=== PATIENT | male | born 1950 | race African-American/Black ===

== ENCOUNTER 2019-08-01 10:35 | Inpatient (IN) | payer MEDICARE, OTHER ==
[~2019-08-01] VITALS: Ht 177.8 cm; Wt 60.5 kg
[2019-08-01] MEDS ORDERED: SODIUM CHLORIDE 0.9% 1,000 ML IV ONE (11:25)
[2019-08-01 11:38] LABS: BASOPHILS % 0.6 % (0.0-2.0); EOSINOPHILS % 0.2 % (0.0-5.0); HEMATOCRIT. 40.7 % (42.0-52.0); HEMOGLOBIN. 13.9 g/dL (14.0-18.0); MEAN CORPUSCULAR HEMOGLOBIN 33.2 pg (28.0-32.0); MEAN CORPUSCULAR VOLUME 97.3 fL (80.0-94.0); MEAN PLATELET VOLUME 7.7 fl (7.4-10.4); MONOCYTES % 7.3 % (2.0-8.0); NEUTROPHILS % 78.9 % (40.0-76.0); PLATELET 199 x1000/uL (130-400); RED BLOOD CELL COUNT 4.18 mill/uL (4.7-6.1); RED CELL DISTRIBUTION WIDTH 13.2 % (11.6-14.6)
[2019-08-01 11:41] LABS: INR 1.1; PROTHROMBIN TIME 10.9 sec (9.6-11.0)
[2019-08-01 11:44] LABS: CHLORIDE 105 mEq/L (98-107)
[2019-08-01 11:47] LABS: ETHANOL BLOOD < 10 mg/dL
[2019-08-01 11:56] LABS: CREATINE KINASE 282 IU/L (39-308)
[2019-08-01 12:40] LABS: CLARITY URINE CLEAR (CLEAR); COLOR URINE YELLOW (YELLOW); KETONES URINE TRACE (NEGATIVE); LEUKOCYTE ESTERASE URINE NEGATIVE (NEGATIVE); NITRITE URINE NEGATIVE (NEGATIVE); OCCULT BLOOD URINE NEGATIVE (NEGATIVE); PH URINE 6.5 (4.5-8.0); PROTEIN URINE 2+ (NEGATIVE); SPECIFIC GRAVITY URINE 1.029 (1.005-1.030)
[2019-08-01 12:55] LABS: METHADONE URINE SCREEN NEGATIVE (NEGATIVE); OPIATES URINE SCREEN NEGATIVE (NEGATIVE)
[2019-08-01 12:56] LABS: *AMPHETAMINES SCREEN URINE NEGATIVE (NEGATIVE); *BARBITURATES SCREEN URINE NEGATIVE (NEGATIVE); *BENZODIAZEPINES SCREEN URINE NEGATIVE (NEGATIVE); *COCAINE SCREEN URINE NEGATIVE (NEGATIVE); CANNABINOID URINE SCREEN PRESUMTIVE POSITIVE (NEGATIVE); PHENCYCLIDINE URINE SCREEN NEGATIVE (NEGATIVE)
[2019-08-01] MEDS ORDERED: IPRATROPIUM/ALBUTEROL 0.5-3(2.5)MG/3ML NEB HHN PRN (14:15)
[2019-08-01] MEDS ORDERED: ONDANSETRON HCL 4MG/2ML INJ IV PRN (14:15)
[2019-08-01] MEDS ORDERED: LORAZEPAM 0.5MG TABLET PO PRN (14:15)
[2019-08-01] MEDS ORDERED: ACETAMINOPHEN 325MG TABLET PO PRN (14:15)
[2019-08-01] MEDS ORDERED: NITROGLYCERIN 0.4MG TABLET SL SL PRN (14:15)
[2019-08-01] MEDS ORDERED: GUAIFENESIN 200MG/10ML SUGAR FREE UDC PO PRN (14:15)
[2019-08-01] MEDS ORDERED: MAGNESIUM/ALUMINUM HYDROXIDE/SIMETHICONE 30ML UDC PO PRN (14:15)
[2019-08-01] MEDS ORDERED: DOCUSATE SODIUM 100MG CAPSULE PO PRN (14:15)
[2019-08-01] MEDS ORDERED: CLONIDINE 0.1MG TABLET PO PRN (14:15)
[2019-08-01] MEDS ORDERED: KETOROLAC 15MG/ML VIAL IV PRN (16:30)
[2019-08-01] MEDS: HALOPERIDOL LACTATE 5MG/ML VIAL IM PRN (17:27)
[2019-08-01 18:56] LABS: T4 FREE 1.01 ng/dL (0.76-1.46)
[2019-08-01 19:14] LABS: FOLIC ACID (FOLATE) SERUM >20 ng/mL ng/mL (>5.38)
[2019-08-01 19:25] LABS: VITAMIN B12 SERUM 848 pg/mL (211-911)
[2019-08-01] MEDS ORDERED: ZOLPIDEM TARTRATE 5MG TABLET PO PRN (21:00)
[2019-08-01 22:00] VITALS: BP 171/76
[2019-08-01] MEDS ORDERED: DEXTROSE 50% WATER 50ML SYRINGE IV PRN (22:30)
[2019-08-01] MEDS: BLOOD SUGAR DIAGNOSTIC STRIP TEST SCH (23:54)
[2019-08-02] MEDS ORDERED: CEFTRIAXONE 1 G PREMIX 50 ML IV NR
[2019-08-02 00:49] LABS: CREATINE KINASE 370 IU/L (39-308)
[2019-08-02 00:51] LABS: CREATINE KINASE MB FRACTION 3.5 ng/mL (0.5-3.6)
[2019-08-02 04:00] VITALS: BP_SYST 89
[2019-08-02] MEDS: HALOPERIDOL LACTATE 5MG/ML VIAL IM PRN (04:29)
[2019-08-02 06:37] LABS: CREATINE KINASE 404 IU/L (39-308); CREATINE KINASE MB FRACTION 3.7 ng/mL (0.5-3.6)
[2019-08-02] MEDS: BLOOD SUGAR DIAGNOSTIC STRIP TEST SCH ×4 (07:40→20:38)
[2019-08-02 08:00] VITALS: BP 164/101
[2019-08-02] MEDS: INSULIN LISPRO 100 UNITS/ML SUBCUT SCH ×5 (08:10→20:43)
[2019-08-02] MEDS: LISINOPRIL 20MG TABLET PO SCH ×2 (09:34→20:43)
[2019-08-02] MEDS: ZINC SULFATE 220 MG ( 50 ) CAPSULE PO SCH (09:34)
[2019-08-02] MEDS: ASCORBIC ACID 500 MG TABLET PO SCH ×2 (09:34→20:37)
[2019-08-02] MEDS: FAMOTIDINE 20MG TABLET PO SCH ×2 (09:34→20:37)
[2019-08-02] MEDS: ASPIRIN 325MG EC TABLET PO SCH (09:34)
[2019-08-02] MEDS: ENOXAPARIN 40MG/0.4ML SYR SUBCUT SCH (09:35)
[2019-08-02 10:35] LABS: BASOPHILS % 0.5 % (0.0-2.0); EOSINOPHILS % 0.8 % (0.0-5.0); HEMATOCRIT. 39.1 % (42.0-52.0); HEMOGLOBIN. 13.3 g/dL (14.0-18.0); LYMPHOCYTES % 15.1 % (20.0-50.0); MEAN CORPUSCULAR HEMOGLOBIN 33.4 pg (28.0-32.0); MEAN CORPUSCULAR VOLUME 98.1 fL (80.0-94.0); MEAN PLATELET VOLUME 8.1 fl (7.4-10.4); MONOCYTES % 8.8 % (2.0-8.0); NEUTROPHILS % 74.8 % (40.0-76.0); PLATELET 184 x1000/uL (130-400); RED BLOOD CELL COUNT 3.98 mill/uL (4.7-6.1); RED CELL DISTRIBUTION WIDTH 13.4 % (11.6-14.6)
[2019-08-02 10:38] LABS: CHLORIDE 105 mEq/L (98-107)
[2019-08-02 12:00] VITALS: BP 141/62
[2019-08-02 16:00] VITALS: BP 154/76
[2019-08-02 20:00] VITALS: BP 145/74
[2019-08-02] MEDS: CEFTRIAXONE 1 G PREMIX 50 ML IV SCH (20:37)
[2019-08-03 04:00] VITALS: BP 128/65
[2019-08-03 08:00] VITALS: BP 157/102
[2019-08-03] MEDS: INSULIN LISPRO 100 UNITS/ML SUBCUT SCH ×4 (08:03→21:00)
[2019-08-03] MEDS: BLOOD SUGAR DIAGNOSTIC STRIP TEST SCH ×4 (08:03→21:00)
[2019-08-03] MEDS: FAMOTIDINE 20MG TABLET PO SCH ×2 (09:00→21:00)
[2019-08-03] MEDS: ASCORBIC ACID 500 MG TABLET PO SCH ×2 (09:00→21:00)
[2019-08-03] MEDS: ZINC SULFATE 220 MG ( 50 ) CAPSULE PO SCH (09:00)
[2019-08-03] MEDS: ENOXAPARIN 40MG/0.4ML SYR SUBCUT SCH (09:00)
[2019-08-03] MEDS: ASPIRIN 325MG EC TABLET PO SCH (09:00)
[2019-08-03] MEDS: LISINOPRIL 20MG TABLET PO SCH ×2 (09:00→21:00)
[2019-08-03 12:00] VITALS: BP 155/83
[2019-08-03 16:29] VITALS: BP 159/106
[2019-08-03 20:00] VITALS: BP 150/80
[2019-08-03] MEDS: CEFTRIAXONE 1 G PREMIX 50 ML IV SCH (20:00)
[2019-08-04] VITALS (7 sets, daily range): BP systolic 124–153; BP diastolic 45–104
[2019-08-04] MEDS: BLOOD SUGAR DIAGNOSTIC STRIP TEST SCH ×3 (08:30→17:40)
[2019-08-04] MEDS: LISINOPRIL 20MG TABLET PO SCH (08:30)
[2019-08-04] MEDS: FAMOTIDINE 20MG TABLET PO SCH (08:30)
[2019-08-04] MEDS: ASCORBIC ACID 500 MG TABLET PO SCH (08:30)
[2019-08-04] MEDS: INSULIN LISPRO 100 UNITS/ML SUBCUT SCH ×3 (08:30→18:10)
[2019-08-04] MEDS: ENOXAPARIN 40MG/0.4ML SYR SUBCUT SCH (08:30)
[2019-08-04] MEDS: ASPIRIN 325MG EC TABLET PO SCH (08:30)
[2019-08-04] MEDS: ZINC SULFATE 220 MG ( 50 ) CAPSULE PO SCH (08:30)
== END 2019-08-04 19:38 | disposition home health service (06) | DRG 871 ==
LOC: ER 12:27 → 7WST 14:02 → EDBEDREQ 14:05 → EDBEDREQTM 14:05 → ENRESERV 21:21
PROVIDERS: ADMIT Internal Medicine; ATTEND Internal Medicine
DX: A41.9 Sepsis, unspecified organism (principal); G92 Toxic encephalopathy; E11.65 Type 2 diabetes mellitus with hyperglycemia; F12.10 Cannabis abuse, uncomplicated; F20.9 Schizophrenia, unspecified; I10 Essential (primary) hypertension; Z79.4 Long term (current) use of insulin; Z79.899 Other long term (current) drug therapy; Z82.49 Family history of ischemic heart disease and other diseases of the circulatory system; Z86.73 Personal history of transient ischemic attack (TIA), and cerebral infarction without residual deficits
CPT/HCPCS: 36415; 70551; 71045; 80061; 80305; 80307; 80320; 80329; 81003; 82140; 82550; 82553; 82607; 82746; 82962; 83036; 83540; 83550; 83605; 83880; 84439; 84443; 84484; 93005; 93306; 93970; 97162; 97166; 97530; 97535; 99285; J0696; J1630; J1650; J1815; J7030; J7040; G0480

== ENCOUNTER 2019-08-21 02:21 | Emergency (ER) | payer MEDICARE, OTHER ==
[~2019-08-21] VITALS: Ht 182.9 cm; Wt 78.0 kg
[2019-08-21] MEDS ORDERED: SODIUM CHLORIDE 0.9% 1,000 ML IV ONE (02:35)
[2019-08-21 03:59] VITALS: BP 114/72
== END 2019-08-21 04:00 | disposition home or self-care (01) ==
LOC: ER 02:21
DX: R41.82 Altered mental status, unspecified (principal); R73.9 Hyperglycemia, unspecified; Z72.89 Other problems related to lifestyle
CPT/HCPCS: 71045; 82962; 99283; J7030